=== PATIENT | male | born 1945 | race Caucasian/White ===

== ENCOUNTER 2021-08-26 10:02 | Emergency (ER) | payer MEDICARE, OTHER ==
[~2021-08-26] VITALS: Ht 188 cm; Wt 82.8 kg
[2021-08-26 11:53] LABS: HEMATOCRIT 24.1 % (39.0-50.0); HEMOGLOBIN 7.1 g/dl (14.0-18.0); IMMATURE GRANULOCYTES 0.2 % (0.0-5.0); MEAN CELL VOLUME 91.3 fL CALC (80.0-100.0); MEAN CORPUSCULAR HGB 26.9 pG CALC (26.0-32.0); MEAN CORPUSCULAR HGB CONC 29.5 g/dL CAL (32.0-36.0); NEUT# 4.01 thou/uL (1.82-7.42); RED BLOOD COUNT 2.64 mill/uL (4.70-6.10); RED CELL DISTRI WIDTH 15.7 % (11.5-15.5)
[2021-08-26 12:03] LABS: ALBUMIN 3.4 g/dL (3.2-5.0); ALKALINE PHOSPHATASE 80 u/l (38-126); ANION GAP 11 (6-22 (CALC)); BILIRUBIN, TOTAL 0.3 mg/dL (0.0-1.4); BUN 16 mg/dL (8-23); BUN/CREATININE RATIO 17 (12-20 (CALC)); CARBON DIOXIDE 24 mmol/l (22-30); CHLORIDE 107 mmol/l (95-108); CREATININE 0.9 mg/dL (0.7-1.3); GFR > 60 ML/MIN (>=60 (CALC)); GFR FOR AFR.AMER. > 60 ML/MIN (>=60 (CALC)); SGOT/AST 22 u/l (19-48); SODIUM 138 mmol/l (137-146); TOTAL PROTEIN 6.2 g/dL (6.3-8.2)
[2021-08-26 14:10] VITALS: BP 149/81
[2021-08-26 15:08] VITALS: BP 149/81
== END 2021-08-26 14:47 | disposition short-term general hospital (02) ==
LOC: ED 10:02
PROVIDERS: Emergency Medicine
PROC: 30233N1 Transfusion of Nonautologous Red Blood Cells into Peripheral Vein, Percutaneous Approach (ICD-10-PCS; principal; 2021-08-26)
DX: K92.2 Gastrointestinal hemorrhage, unspecified (principal); D50.0 Iron deficiency anemia secondary to blood loss (chronic); I10 Essential (primary) hypertension; I48.91 Unspecified atrial fibrillation; J44.9 Chronic obstructive pulmonary disease, unspecified; I73.9 Peripheral vascular disease, unspecified; I25.2 Old myocardial infarction; Z95.2 Presence of prosthetic heart valve
CPT/HCPCS: P9016; S0164

== ENCOUNTER 2024-10-08 14:34 | Emergency (ER) | payer MEDICARE, OTHER ==
[~2024-10-08] VITALS: Ht 182.9 cm; Wt 80.4 kg
[2024-10-08 16:07] VITALS: BP 171/65
[2024-10-08 16:30] VITALS: BP 178/71
[2024-10-08 16:45] VITALS: BP 163/64
[2024-10-08 17:00] VITALS: BP 170/70
[2024-10-08 17:15] VITALS: BP 170/66
[2024-10-08] MEDS ORDERED: IPRATROPIUM-Albuterol 0.5MG-2.5MG/3 ML NEB ONE (17:20)
[2024-10-08] MEDS ORDERED: methylPREDNISolone SODIUM SUCC 125 MG/2 ML SDV IM ONE (17:20)
[2024-10-08] MEDS ORDERED: DOXYCYCLINE HYCLATE 100 MG/CAP PO ONE (17:20)
[2024-10-08] MEDS ORDERED: VIBRAMYCIN100 M2 PO ×2 (17:22→17:59)
[2024-10-08] MEDS ORDERED: NEBULIZER MASK IN ×2 (17:22→17:59)
[2024-10-08] MEDS ORDERED: IPRATROPIU0.5 MG/3 M IN ×2 (17:22→17:59)
[2024-10-08] MEDS ORDERED: PREDNISONE20 MG PO ×2 (17:22→17:59)
[2024-10-08 17:30] VITALS: BP 158/64
== END 2024-10-08 17:39 | disposition home or self-care (01) ==
LOC: ED 14:34
DX: J18.9 Pneumonia, unspecified organism (principal); J44.0 Chronic obstructive pulmonary disease with (acute) lower respiratory infection; I10 Essential (primary) hypertension; I48.91 Unspecified atrial fibrillation; I25.2 Old myocardial infarction; I73.9 Peripheral vascular disease, unspecified; Z95.2 Presence of prosthetic heart valve; Z95.828 Presence of other vascular implants and grafts; Z20.822 Contact with and (suspected) exposure to COVID-19